=== PATIENT | female | born 1965 | race Caucasian/White ===

== ENCOUNTER 2017-11-21 08:44 | Inpatient (IN) | payer OTHER ==
[~2017-11-21] VITALS: Ht 167.6 cm; Wt 117.5 kg
--- NOTE | ~2017-11-21 | EKG ---
[address] [place] [address] ELECTROCARDIOGRAM REPORT Name: PAGE MEDEROS Room #: PRE M.R.#: [id number] Admission: Attend Phys: Discharge: Date of : 69 Report #: [id number] THIS REPORT FOR: //name// [facility] ED Test Date: 2017-11-21 Test Time: 08:50:45 Pat Name: PAGE MEDEROS Department: Room: Gender: F Digital Operations Analyst: : 1965 Requested By: Joslyn Rogers Order Number: [id number] MD: Chapin Zeng Measurements Intervals [place] Rate: 109 P: 65 IA: 146 QRS: 50 QRSD: 90 T: 91 QT: 330 QTc: 445 Interpretive Statements Sinus tachycardia Inferoposterior and lateral infarct, acute (RCA) Probable RV involvement No previous ECG available for comparison Electronically Signed On 11-21-2017 9:06:07 CDT by Chapin Zeng [email or web address] <ELECTRONICALLY SIGNED> By: Chapin Zeng MD, [facility] 11/21/17 0906 0850 0850 Chapin Zeng MD, FACC /EPI
--- NOTE | ~2017-11-21 | EKG ---
[address] [place] [address] ELECTROCARDIOGRAM REPORT Name: PAGE MEDEROS Room #: 204-[facility] M.R.#: [id number] Admission: 11/21/17 Attend Phys: Greg Kuo MD, Discharge: Date of : 69 Report #: [id number] THIS REPORT FOR: //name// [facility] Test Date: 2017-11-22 Test Time: 06:08:27 Pat Name: PAGE MEDEROS Department: Room: 204 Gender: F Roughener: SHARRI : 1965 Requested By: Greg Kuo Order Number: [id number] MD: Chapin Zeng Measurements Intervals [place] Rate: 86 P: 67 RI: 139 QRS: -46 QRSD: 94 T: 53 QT: 381 QTc: 456 Interpretive Statements Sinus rhythm Probable inferior infarct, recent Compared to ECG 11/21/2017 08:50:45 Sinus tachycardia no longer present Inferior and lateral ST elevation are less pronounced Electronically Signed On 11-22-2017 8:57:00 CDT by Chapin Zeng [email or web address] <ELECTRONICALLY SIGNED> By: Chapin Zeng MD, [facility] 11/22/17 0857 0608 0608 Chapin Zeng MD, [facility] /EPI
--- NOTE | ~2017-11-21 | 2DMMODE ---
[facility] [address] [place] [address] 2 D/M-MODE ECHOCARDIOGRAM Name: PAGE MEDEROS Room #: 204-P [facility] IN M.R.#: [id number] Admission: 11/21/17 Attend Phys: Greg Kuo, Discharge: Date of : 69 Date of Service: 11/21/17 1713 Report #: [id number] THIS REPORT FOR: //name// APPROVED REPORT Study performed: 11/21/2017 13:58:23 EXAM: Comprehensive 2D, Doppler, and color-flow Echocardiogram Patient Location: Echo lab Room #: 204 Status: routine BSA: 2.20 HR: 79 bpm BP: 91/63 mmHg Rhythm: Irregular Other Information Study Quality: Good Indications Chest pain. Status post cardiac stent. Hx: DM, HTN, morbid obesity 2D Dimensions RVDd: 33.11 mm LVEF(%): 49.25 (>50%) IVSd: 10.94 (7-11mm) LVOT Diam: 21.05 (18-24mm) LVDd: 47.71 mm PWd: 10.73 (7-11mm) Ascending Ao: 35.13 (22-36mm) LVDs: 35.83 (25-40mm) Aortic Root: 32.66 mm Vaughn's LVEF: 49.25 % Volumes Left Atrial Volume (Systole) Single Plane 4CH: 46.02 mL Single Plane 2CH: 61.14 mL LA ESV Index: 25.00 mL/m2 Aortic Valve AoV Peak Laurent.: 2.65 m/s AO Peak Gr.: 28.18 mmHg LVOT Max P.39 mmHg AO Mean Gr.: 16.59 mmHg AO V2 Mean: 1.91 m/s LVOT Max V: 0.92 m/s AO V2 VTI: 52.16 cm ANDRES Vmax: 1.21 cm2 [facility] [place] [address] 2 D/M-MODE ECHOCARDIOGRAM Name: PAGE MEDEROS Room #: 204-P [facility] IN ..#: [id number] Admission: 11/21/17 Attend Phys: Greg Kuo, Discharge: Date of : 69 Date of Service: 11/21/17 1713 Report #: [id number] Mitral Valve E/A Ratio: 0.8 MV Decel. Time: 231.06 ms MV E Max Laurent.: 0.81 m/s MV A Laurent.: 1.04 m/s MV PHT: 67.01 ms IVRT: 114.19 ms Pulmonary Valve PV Peak Laurent.: 0.80 m/s PV Peak Gr.: 2.54 mmHg Pulmonary Vein P Vein S: 0.62 m/s P Vein A: 0.33 m/s P Vein D: 0.40 m/s P Vein A Dur.: 83.0 msec P Vein S/D Ratio: 1.55 Tricuspid Valve RAP Estimate: 5.00 mmHg Left Ventricle The left ventricle is normal size. Mild concentric left ventricular hypertrophy. Left ventricular systolic function is normal. Hypokinesis involving the base of the inferior wall. LVEF is 50%. Mild diastolic dysfunction is present (impaired relaxation pattern). Right Ventricle The right ventricle is normal size. The right ventricular systolic function is normal. Atria The left atrium size is normal. The right atrium size is normal. Aortic Valve Aortic valve is moderately calcified, mildly stenotic. No aortic regurgitation is present. There is mild to moderate valvular aortic stenosis. Calculated aortic valve area is 1.2 cm2 with maximum pressure gradient of 28 mmHg and mean pressure gradient of 17 mmHg. Mitral Valve The mitral valve is mildly sclerotic Mild to moderate mitral regurgitation. Tricuspid Valve [facility] [address] [place] [address] 2 D/M-MODE ECHOCARDIOGRAM Name: PAGE MEDEROS Room #: 204-P [facility] IN ..#: [id number] Admission: 11/21/17 Attend Phys: Greg Kuo, Discharge: Date of : 69 Date of Service: 11/21/17 1713 Report #: [id number] The tricuspid valve is normal in structure. There is no tricuspid valve regurgitation noted. Unable to assess PA pressure. Pulmonic Valve The pulmonary valve is normal in structure. Trace pulmonic regurgitation. Great Vessels The aortic root is normal in size. IVC is normal in size and collapses >50% with inspiration. Pericardium There is no pericardial effusion. <Conclusion> Left ventricular systolic function is normal. Hypokinesis involving the base of the inferior wall. LVEF is 50%. Mild diastolic dysfunction Aortic valve is moderately calcified, mildly stenotic, no insufficiency. Calculated aortic valve area is 1.2 cm2 with maximum pressure gradient of 28 mmHg and mean pressure gradient of 17 mmHg. The mitral valve is mildly sclerotic Mild to moderate mitral regurgitation. Pulmonary artery pressure could not be reliably ascertained There is no pericardial effusion. <ELECTRONICALLY SIGNED> By: Chapin Zeng MD, FACC 11/21/17 171 12 12 Chapin Zeng MD, FACC /INF
--- NOTE | ~2017-11-21 | EKG ---
[address] [address] [facility] [place] [address] ELECTROCARDIOGRAM REPORT Name: PAGE MEDEROS Room #: PRE M.R.#: [id number] Admission: Attend Phys: Discharge: Date of : 69 Report #: [id number] THIS REPORT FOR: //name// [facility] ED Test Date: 2017-11-21 Test Time: 08:47:05 Pat Name: PAGE MEDEROS Department: Room: Gender: F Board Certified Family Physician: : 1965 Requested By: Joslyn Rogers Order Number: [id number] MD: Chapin Zeng Measurements Intervals [place] Rate: 104 P: 74 FL: 168 QRS: 28 QRSD: 94 T: 96 QT: 326 QTc: 429 Interpretive Statements Sinus tachycardia Inferoposterior infarct, acute (RCA) Lateral leads are also involved Probable RV involvement No previous ECG available for comparison Electronically Signed On 11-21-2017 9:06:44 CDT by Chapin Zeng [email or web address] <ELECTRONICALLY SIGNED> By: Chapin Zeng MD, [facility] 11/21/17 0906 0847 0847 Chapin Zeng MD, FAC /EPI
--- NOTE | ~2017-11-21 | H ---
[facility] [place] [place] [address] HISTORY AND PHYSICAL Name: PAGE MEDEROS Room #: 204-P [facility] IN M.R.#: [id number] Admission: 11/21/17 Attend Phys: Greg Kuo MD, Discharge: 11/23/17 Date of : 69 Report #: [id number] THIS REPORT FOR: //name// CC: FAM unknown Greg Kuo HISTORY OF PRESENT ILLNESS: The patient is a 52-year-old female, brought in by [place] [employer] paramedics with onset of severe chest pain, associated with extreme diaphoresis and shortness of breath. This awoke her shortly before 8:00 a.m. this morning. She has not had prior cardiac history. A poor historian here, but states she takes insulin and some heart medicine. She denies ever having chest pain or anginal-type complaints. She is not terribly active. She is not a drinker or smoker. She is not allergic to any medications. She is in the Emergency Room with a 10/10 chest pain. She has been given nitro and aspirin. Initially was hypertensive at 220 systolic. Still having significant discomfort. MEDICATIONS: Basically are insulin and some heart medicine, of which she is not aware of the name. SOCIAL HISTORY: She has children, but they are , she states. She lives alone. She does not work, does not drink alcohol or drugs, she denies. FAMILY HISTORY: Father had bypass at relatively young age. REVIEW OF SYSTEMS: Really noncontributory here. PHYSICAL EXAMINATION: VITAL SIGNS: Pulse is 107, blood pressure is 184/120. GENERAL: She is in extreme duress. HEENT: Eyes reveal xanthelasmas. Pharynx is clear. NECK: Shows preserved upstrokes without JVD or bruits. LUNGS: Clear anteriorly. CARDIOVASCULAR: Tachycardic S1, S2. ABDOMEN: Obese. EXTREMITIES: Reveal trace edema, nonpitting. NEUROLOGIC: Nonfocal. EXTREMITIES: Reveal no significant arthritic changes are noted. SKIN: Warm and dry. There are multiple tattoos. No open ulcers. ASSESSMENT: 1. Acute posterolateral infarct, consistent with ST-elevation myocardial infarction. 2. Diabetes. 3. Hypertension. 4. Suspected hypercholesterolemia. [facility] [address] [place] [address] HISTORY AND PHYSICAL Name: PAGE MEDEROS Room #: [address] [place] [address] [place] M.R.#: [id number] Admission: 11/21/17 Attend Phys: Greg Kuo MD, Discharge: 11/23/17 Date of : 69 Report #: [id number] RECOMMENDATIONS AND PLAN: She has received heparin, nitro, aspirin and Lipitor 80. We will proceed emergently to the catheterization lab to delineate the anatomy. This has been discussed briefly with her about risks, benefits, alternatives. We will proceed. <ELECTRONICALLY SIGNED> By: Greg Kuo MD, [facility] 11/23/17 1305 0906 0958 Greg Kuo MD, FACC /nt
--- NOTE | ~2017-11-21 | CATHLAB ---
[facility] [address] [place] [address] INVASIVE PROCEDURE REPORT Name: PAGE MEDEROS Room #: 204-P ADM IN M.R.#: [id number] Admission: 11/21/17 Attend Phys: Greg Kuo, Discharge: Date of : 69 Date of Service: 11/22/17 1243 Report #: [id number] THIS REPORT FOR: //name// APPROVED REPORT Study performed: 11/21/2017 09:15:41 Patient Details Patient Status: ED Room #: The patient is a 52 year-old female Event Personnel Greg Kuo Whip Operator, Joselo Reeves RN, Juaquin Singh, Zoie Padilla Monitor Procedures Performed Art Access - R femoral artery* Left Heart Cath w/or w/o Coronaries [id number] [facility] [address] Place w/wo Plasty Single CIRC 051620 27152 Initial Mod Sed Same Phys/QHP Gr5y 197240 97094 Mod Sed Same Phys/QHP Ea 226864 Abdominal Aortography 484616 Indication STEMI (>0 to less than or equal to 6 hours) Procedure Narrative The Right Groin^ was infiltrated with 1% Lidocaine subcutaneous anesthesia. A PINNACLE 6FR Sheath #[id number] sheath was inserted into the RFA^. Coronary angiography was performed using coronary diagnostic catheters. The right coronary system was accessed and visualized with a JR4 catheter. The left coronary system was accessed and visualized with a JL4 catheter. The left ventricle was accessed and visualized with a Pigtail catheter. Left ventriculogram was performed in 30 degree projection. An aortogram of the abdominal aorta was performed. Closure device was deployed with a 6 Fr MYNXGRIP 6/7F #[id number]. The patient tolerated the procedure well and there were no complications associated with the procedure. There was no hematoma. Intraoperative Conscious Sedation Sedation start time: 09:26 Case end Time: 09:56 Fentanyl 100 mcg Versed 3 mg Fluoro Time: 5.20 minutes Dose: DAP 03774.00 cGycm2 [address] [address] INVASIVE PROCEDURE REPORT Name: PAGE MEDEROS Room #: 204-P [facility] IN .R.#: [id number] Admission: 11/21/17 Attend Phys: Greg Kuo, Discharge: Date of : 69 Date of Service: 11/22/17 1243 Report #: [id number] Contrast Type and Amount: Visipaque 170 ml Hemodynamics The aortic pressure is 200/131 mmHg with a mean of 157 mmHg. The left ventricular pressure is 212/23 mmHg with a mean of mmHg. The left ventricular end diastolic pressure is 40 mmHg. PCI Technique Lesion Percutaneous coronary intervention was performed on the proximal circumflex artery segment. A LAUNCHER 6FR EBU 4 #[id number] Guide Catheter was used to engage the ostium. A Luge Wire .014 x 182CM #[id number] Interventional Guidewire was used to cross the lesion. BALLOON DILATION A Balloon catheter Sprinter OTW 2.5 x 12 #[id number] was inserted and inflated up to 12.00atm for 18seconds. STENT DEPLOYMENT A drug-eluting stent RESOLUTE OTW 3.0 X 9 #[id number] was inserted and inflated up to 14.00atm for 21seconds. Additional Inflation: 18.00atm for 17seconds. Conclusion #1 successful emergent PTCA stent of occluded dominant circumflex artery proximally (STEMI) placement of a 30 by 9 resolute drug-eluting stent post I to 3.2 mm filling a large first OM and distal circumflex dominant system diffuse disease distally #2 left main large free of disease giving rise to LAD and circumflex #3 LAD is a long proximal lesion of 60% diffuse disease distally to type I LAD stops short of the apex #4 ramus intermedius branch has a 50-60% proximal lesion #5 nondominant right moderately diseased #6 normal left ventricular size with subtle inferior lateral wall leg EF 50% range #7 abdominal aorta widely patent without occlusive disease single bilateral renal arteries widely patent Recommendations and plan continue aggressive risk factor modification dual antiplatelet therapy indefinitely. Patient markedly improved hemodynamically. Pain is relieved. Improvement in EKG. We'll proceed to CCU for monitoring post infarct stent placement. [facility] [address] [address] INVASIVE PROCEDURE REPORT Name: PAGE MEDEROS Room #: 204-P [facility] IN M.R.#: [id number] Admission: 11/21/17 Attend Phys: Greg Kuo, Discharge: Date of : 69 Date of Service: 11/22/17 1243 Report #: [id number] Will need follow-up looking for ischemia in the anterior distribution with that moderate long proximal LAD lesion. Not high-grade. <ELECTRONICALLY SIGNED> By: Greg Kuo MD, FACC 11/22/17 1243 1243 1243 Greg Kuo MD, FACC /INF
[2017-11-21 08:45] VITALS: BP 188/123
[2017-11-21 09:02] LABS: ABSOLUTE NEUTROPHILS 8.1 thou/uL (1.4-8.2); BASOPHILS 0.6 % (0.0-2.0); EOSINOPHILS 0.6 % (0.0-3.0); HEMATOCRIT 44.9 % (37.0-47.0); HEMOGLOBIN 15.1 gm/dL (12.0-15.0); LYMPHOCYTES 26.8 % (24.0-44.0); MCH 28.5 pg (26.0-34.0); MCHC 33.6 g/dL (28.0-37.0); MCV 84.7 fL (80.0-100.0); MONOCYTES 4.1 % (1.0-8.0); PLATELET COUNT 339 thou/uL (150-400); POLYS 67.9 % (36.0-66.0); RBC 5.31 mil/uL (4.20-5.00); RDW 13.4 % (10.5-14.5); WBC 11.9 thou/uL (4.0-11.0)
[2017-11-21 09:11] VITALS: BP 164/110
[2017-11-21 09:13] LABS: CALCIUM 9.5 mg/dL (8.5-10.1); POTASSIUM 4.1 mmol/L (3.5-5.1)
[2017-11-21 09:21] LABS: TROPONIN-I 0.12 ng/mL (<0.06)
[2017-11-21 10:37] VITALS: BP 91/63
[2017-11-21 12:13] LABS: CHOLESTEROL 255 mg/dL (<200); HDL CHOLESTEROL 59 mg/dL (>40); LDL CHOLESTEROL 161 mg/dL (<100); TC:HDL 4.3 Ratio (Not establshd); TRIGLYCERIDE 178 mg/dL (<150); VLDL 36 mg/dL (<40)
[2017-11-21 12:20] LABS: TROPONIN-I 14.33 ng/mL (<0.06)
[2017-11-21 14:54] VITALS: BP 105/71
[2017-11-21 19:48] VITALS: BP 122/68
[2017-11-21] MEDS ORDERED: ASPIR 8181 MG PO (23:35)
[2017-11-22 00:17] VITALS: BP 121/66
[2017-11-22 05:17] VITALS: BP 111/75
[2017-11-22 05:30] LABS: HEMATOCRIT 42.1 % (37.0-47.0); HEMOGLOBIN 14.3 gm/dL (12.0-15.0); MCH 28.7 pg (26.0-34.0); MCV 84.4 fL (80.0-100.0); RBC 4.98 mil/uL (4.20-5.00); RDW 13.8 % (10.5-14.5); WBC 9.8 thou/uL (4.0-11.0)
[2017-11-22 05:49] LABS: CALCIUM 8.9 mg/dL (8.5-10.1); CREATININE 0.8 mg/dL (0.6-1.0); POTASSIUM 4.5 mmol/L (3.5-5.1)
[2017-11-22 06:07] LABS: TROPONIN-I 69.03 ng/mL (<0.06)
[2017-11-22 08:16] VITALS: BP 105/70
[2017-11-22 17:25] VITALS: BP 104/75
[2017-11-22 19:52] VITALS: BP 104/65
[2017-11-23 04:32] VITALS: BP 129/84
[2017-11-23 07:24] VITALS: BP 112/82
[2017-11-23] MEDS ORDERED: CLOPIDOGREL75 MG PO (08:14)
[2017-11-23] MEDS ORDERED: COZAAR 50 MG TA50 M2 PO (08:15)
[2017-11-23] MEDS ORDERED: ASPIRIN325 PO (08:15)
[2017-11-23] MEDS ORDERED: ATORVASTATIN CA40 MG PO (08:15)
[2017-11-23] MEDS ORDERED: METOPROLOL SUCC50 MG PO (08:15)
[2017-11-23 08:46] VITALS: BP 112/82
== END 2017-11-23 09:53 | disposition home or self-care (01) | DRG 247 ==
LOC: ER 08:44 → EROBS 09:11 → 2N 09:30 → EROBS 09:30 → 2N 10:11 → ENTRNSPT 11-23 09:29 → EDTRNSPTSTS 11-23 09:32 → 2N 11-23 09:53
PROVIDERS: Emergency Medicine; Internal Medicine Cardiovascular Disease
PROC: 4A023N7 Measurement of Cardiac Sampling and Pressure, Left Heart, Percutaneous Approach (ICD-10-PCS; principal; 2017-11-22)
PROC: B211YZZ Fluoroscopy of Multiple Coronary Arteries using Other Contrast (ICD-10-PCS; principal; 2017-11-22)
PROC: 027034Z Dilation of Coronary Artery, One Artery with Drug-eluting Intraluminal Device, Percutaneous Approach (ICD-10-PCS; principal; 2017-11-22)
PROC: B215YZZ Fluoroscopy of Left Heart using Other Contrast (ICD-10-PCS; principal; 2017-11-22)
PROC: B410YZZ Fluoroscopy of Abdominal Aorta using Other Contrast (ICD-10-PCS; principal; 2017-11-22)
DX: I21.29 ST elevation (STEMI) myocardial infarction involving other sites (principal); E11.9 Type 2 diabetes mellitus without complications; I10 Essential (primary) hypertension; E78.00 Pure hypercholesterolemia, unspecified; I35.0 Nonrheumatic aortic (valve) stenosis; Z79.82 Long term (current) use of aspirin; Z79.899 Other long term (current) drug therapy
CPT/HCPCS: 10194